=== PATIENT | male | born 1975 | race Caucasian/White ===

== ENCOUNTER 2021-01-13 18:56 | Emergency (ER) | payer BC ==
[2021-01-13] MEDS ORDERED: TORADOL 10 MG T10 MG PO (22:57)
== END 2021-01-13 23:26 | disposition home or self-care (01) ==
LOC: ER1 18:56
DX: S22.32XA Fracture of one rib, left side, initial encounter for closed fracture (principal); I10 Essential (primary) hypertension; Z88.2 Allergy status to sulfonamides; W18.31XA Fall on same level due to stepping on an object, initial encounter; Y92.69 Other specified industrial and construction area as the place of occurrence of the external cause; Y99.0 Civilian activity done for income or pay
CPT/HCPCS: 71250; 81001; 96374; 99284; J1885